=== PATIENT | female | born 1965 | race Caucasian/White ===

== ENCOUNTER 2016-10-10 05:21 | Day surgery (SDC) | payer OTHER ==
[~2016-10-10] VITALS: Ht 167.6 cm; Wt 94.5 kg
[~2016-10-10 05:21] MED LIST: HYDROCODONE-APA1 TA1 PO
[2016-10-10 07:12] VITALS: BP 113/71
[2016-10-10 09:35] VITALS: BP 113/71
== END 2016-10-10 10:45 | disposition home or self-care (01) ==
LOC: OR 05:21 → TBA 05:22 → OR 10:45
DX: S52.92XA Unspecified fracture of left forearm, initial encounter for closed fracture (principal); S52.202A Unspecified fracture of shaft of left ulna, initial encounter for closed fracture; X58.XXXA Exposure to other specified factors, initial encounter; Y93.9 Activity, unspecified; Y92.89 Other specified places as the place of occurrence of the external cause; Y99.9 Unspecified external cause status
CPT/HCPCS: 50010; 50101; 50386; 51736; 55430; 56525; 56527; 57091; 62110; 62900; 70005